=== PATIENT | female | born 1995 | race Caucasian/White ===

== ENCOUNTER 2016-09-04 08:29 | Day surgery (SDC) | payer OTHER ==
[~2016-09-04] VITALS: Ht 172.7 cm; Wt 123.8 kg
== END 2016-09-04 10:20 | disposition home or self-care (01) ==
LOC: MDS 08:29 → MMU 08:34 → MDS 10:20
PROVIDERS: ATTEND Surgery
DX: Z53.8 Procedure and treatment not carried out for other reasons (principal)
CPT/HCPCS: 71010; 81025; J0690; J7060; J7120